=== PATIENT | male | born 1955 | race Caucasian/White ===

== ENCOUNTER 2025-03-08 22:07 | Emergency (ER) | payer OTHER, MEDICARE ==
[2025-03-09] MEDS: Acetaminophen/oxyCODONE 325-5 MG Tab PO ONE (00:16)
[2025-03-09] MEDS: Ondansetron 4 MG Tab.DIS PO ONE (00:17)
== END 2025-03-09 00:10 | disposition home or self-care (01) ==
LOC: JD.ED 22:07 → MERGE 22:07 → JD.ED 03-09 00:10
DX: S06.0X1A Concussion with loss of consciousness of 30 minutes or less, initial encounter (principal); S22.42XA Multiple fractures of ribs, left side, initial encounter for closed fracture; S00.03XA Contusion of scalp, initial encounter; R40.2412 Glasgow coma scale score 13-15, at arrival to emergency department; W17.89XA Other fall from one level to another, initial encounter
CPT/HCPCS: 70450; 71250; 72125; 99284; A9270